=== PATIENT | male | born 1955 | race Caucasian/White ===

== ENCOUNTER 2024-11-06 12:38 | Emergency (ER) | payer OTHER ==
[~2024-11-06] VITALS: Ht 177.8 cm; Wt 84.4 kg
[2024-11-06 12:41] VITALS: BP 125/75; PULSE 88; RESP 16; O2SAT 97
--- NOTE | 2024-11-06 13:07 | RADIOLOGY REPORT ---
CLINICAL INDICATION: RIGHT HAND PAIN TECHNIQUE: Right DI HAND, COMPLETE (3VW MIN) Comparison: None FINDINGS/IMPRESSION: : There is no evidence of acute fracture or dislocation. Soft tissues are unremarkable. 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 Diffuse osteopenia.
[2024-11-06] MEDS: LIDOcaine 1% W/epiNEPHrine 1:100,000 20ml vial SQ STA (14:23)
[2024-11-06] MEDS: TETanus/Pertussis (Acell)/Diphther VAC/PF (Tdap-Adult) 0.5ml syringe IMVAC ONE (14:53)
[2024-11-06] MEDS ORDERED: SULF1TAB49 PO (16:51)
--- NOTE | 2024-11-06 16:51 | Physician Documentation ---
History of Present Illness ~ Chief Complaint: Laceration Stated Complaint: R WRIST/HAND LAC Time Seen by MD: 12:42 HPI Patient is seen today with complaints of laceration from a jagged piece of metal to the ulnar aspect of his right hand on the dorsum. Patient states this o ccurred just prior to arrival. Patient denies taking any blood thinners any has no other concern or complaint at this time. Tetanus Within 5 Years: Yes (November 06 2024) Medication Reconciliation Allergies: Coded Allergies: No Known Allergies (Unverified , 11/06/24) Past Medical History Smoking Status: Never smoker Review of Systems Constitutional: Denies: chills, fever, weakness Eyes: Denies: pain, blurred vision ENT: Denies: ear pain, nose pain, throat pain, mouth pain Respiratory: Denies: cough, shortness of breath Cardiovascular: Denies: chest pain, palpitations Gastrointestinal: Denies: abdominal pain, nausea, vomiting Genitourinary: Denies: burning, dysuria Male Genitalia: Denies: penile discharge, testicular pain Neurological: Denies: headache, dizziness Musculoskeletal: Denies: pain, swelling Integumentary: Denies: rash, lesions Allergic/Immunologic: Denies: hives, itching Hematologic/Lymphatic: Denies: no symptoms reported Psychiatric: Denies: depression, anxiety Physical Exam Vital Signs: Temperature: 98.0, Source: Temporal, Heart Rate: 88, Respiratory Rate: 16, BP: 125/75, Pulse Oximetry: 97, Weight: 84.400 Oxygen Flow Rate: 0 Physical Exam General: Awake and Alert, no acute distress. HEENT: Conjunctiva pink, Sclera clear, Mucus Membranes moist. Neck: Supple without masses and tenderness. Resp: Unlabored. Lungs clear to auscultation bilaterally. Heart: Regular Rate and rhythm, normal S1 and S2 without murmur, rub or gallop. Musculoskeletal: Patient on exam does have active wrist extension without any sign of ECU tendon involvement. Patient has full extension of all digits. Patient is neurovascularly intact distally of right upper extremity. Patient does have jagged and complicated 7 cm laceration that under scored a large flap of dermis to the dorsum of his right hand. Patient is neurovascularly intact distally. Motor function intact distally. Extremities: No cyanosis,clubbing or edema. Skin: Warm and Dry. Procedures Laceration/Wound Repair Laceration : Procedure Note Procedure note: 7 cc of 1% lidocaine with epinephrine was used to achieve local anesthesia of laceration to dorsum of right hand. Patient tolerated well. Area was copiously irrigated with normal saline and iodine. Patient tolerated well. Notable simple sutures as well as running stitch was used to achieve closure using 4-0 Ethilon of the 7 cm laceration to dorsum of right hand on the ulnar aspect. Skin tear was closed using Dermabond and Steri-Strips. Progress Results/Orders Results/Orders Completed Orders - DOROTHY WHITE Lidocaine 1% W/Epi 1:100,000 (Xylocaine (11/06/24 13:47) Tetanus/Pertuss/Diph Acell/Pf (Boostrix (11/06/24 14:50) Medications Received in ER Medications (Trade) Dose Ordered Sig/Shan Route PRN Reason Start Time Stop Time Status Last Admin Dose Admin (Boostrix vaccine syringe) 0.5 ml ONCE ONCE IMVAC 11/06/24 14:50 11/06/24 14:51 DC 11/06/24 14:53 0.5 ML Vital Signs 11/06/24 12:41 Temp 98.0 Pulse 88 Resp 16 B/P (MAP) 125/75 Pulse Ox 97 O2 Flow Rate 0 EKG/XRAY/CT/US/VASC/MRI Bone/Soft Tissue X-Ray (Ext.) : Additional Comment X-ray interpretation of right hand interpreted by myself today and shows no sign of acute fracture, significant DJD of 1st CMC joint, and chronic appearing amputation of distal tuft of the 3rd digit. DIAGNOSTIC RADIOLOGY Patient: DAVID FORRESTER V Medical Record: [id number] [facility] : 1955, Age: 68 Sex: Male Location: ER Patient Status: REG ER Service Date/Time: 11/06/241241 Ordering Physician: ЮЛИЯ KOVACS MD Exam: HAND, COMPLETE (3VW MIN) CLINICAL INDICATION: RIGHT HAND PAIN TECHNIQUE: Right DI HAND, COMPLETE (3VW MIN) Comparison: None FINDINGS/IMPRESSION: : There is no evidence of acute fracture or dislocation. Soft tissues are unremarkable. 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 Diffuse osteopenia. Electronically Signed by:BLAYNE LUNA MD Date & Time: 11/06/24 130 Dictated by: BLAYNE LUNA MD Dictation date and time: 11/06/24 1305 Primary Care Provider: NO PRIMARY CARE PROVIDER cc: ЮЛИЯ KOVACS MD ~ Medical Decision Making Findings Patient is seen today with complaints of laceration from a jagged piece of metal to the ulnar aspect of his right hand on the dorsum. Patient states this occu rred just prior to arrival. Patient denies taking any blood thinners any has no other concern or complaint at this time. Laceration to dorsum of right hand was sutured today by myself and patient tolerated well. Another skin flap or skin tear was repaired using Dermabond and Steri-Strips. Patient will follow up in 7-10 days for suture removal. Shared decision-making utilized today. Prescription of Bactrim DS sent to patient pharmacy to take prophylactically. Return to ED with any worsening, concerning or changing symptoms. Departure Disposition: 01 HOME / SELF CARE / HOMELESS Impression: Primary Impression: Laceration Condition: Improved Discharge Instructions: Laceration Care, Adult, [id number] Additional Instructions: Laceration to dorsum of right hand was sutured today by myself and patient tolerated well. Another skin flap or skin tear was repaired using Dermabond and Steri-Strips. Patient will follow up in 7-10 days for suture removal. Shared decision-making utilized today. Prescription of Bactrim DS sent to patient pharmacy to take prophylactically. Return to ED with any worsening, concerning or changing symptoms. Referrals: NO PRIMARY CARE PROVIDER (PCP) Prescriptions Sulfamethoxazole/Trimethoprim (Bactrim Ds Tablet) 800 Mg-160 Mg Tablet 1 TAB PO Q12H for 10 Days, #20 TAB Prov: DOROTHY WHITE 11/06/24 Signature Scribe Signature: No scribe Attestation: No scribe WHITE,DOROTHY R PAC Nov 06, 2024 16:50
[2024-11-06 17:19] VITALS: TEMP 98
== END 2024-11-06 17:21 | disposition home or self-care (01) ==
LOC: ER 12:39
DX: S61.411A Laceration without foreign body of right hand, initial encounter (principal); X58.XXXA Exposure to other specified factors, initial encounter; Y93.89 Activity, other specified; Y92.89 Other specified places as the place of occurrence of the external cause; Y99.8 Other external cause status
CPT/HCPCS: 12002; 73130; 90715; 99283; A6222; A6402; A6446; A6449; G0008; J7030; Z7610; 90471

== ENCOUNTER 2025-03-16 14:51 | Emergency (ER) | payer OTHER, MEDICAID ==
[~2025-03-16] VITALS: Ht 177.8 cm; Wt 80.0 kg
[2025-03-16 15:01] VITALS: TEMP 97.4
--- NOTE | 2025-03-16 15:05 | Physician Documentation ---
History of Present Illness Stated Complaint: PINK EYE HPI Patient is a very pleasant 69-year-old male that presents to the emergency department for evaluation of redness and irritation to the left eye that has now moved into the right eye although in a much milder form. Patient reports that he has had these symptoms for approximately 1 month. Patient denies any knowledge of chemical exposures to the eye anything blowing into his eye although patient does report that he spends a significant amount of time outside. Patient denies any other symptoms at this time. Reports that in the morning he has crusty discharge and has to pry his eyes open Medication Reconciliation Allergies: Coded Allergies: No Known Allergies (Unverified , 11/06/24) Scheduled Erythromycin Base Opth. Ointment* (Erythromycin Opth. Ointment*), 1 APPLIC EACHEYE Q4HWA Review of Systems All Other Systems at this time: Reviewed and Negative ROS As stated above in the HPI, otherwise all systems are reviewed and negative. Physical Exam Physical Exam General: Alert, no apparent distress. HEENT: PERRL, EOMI,, moist mucous membranes. eyes watery with injected sclera Neurologic: Oriented x4. Psychiatric: Normal mood and affect. Skin: Normal color, warm and dry. No edema, no ecchymosis. Medical Decision Making Additional info obtained from: other Findings Has all the clinical indications for bacterial conjunctivitis. I will treat him empirically based on my exam Differential Dx:Considerations: Include: AAA, Angina/AZ, Aortic dissection, Appendicitis, Bowel obstruction, Cholangitis, Cholelithasis, Constipation, Diverticular disease, Esophageal rupture, Esophagitis, Gastritis/PUD, Gastroenteritis, GI hemorrhage, Hernia, Hepatitis, Inflammatory BD, Ischemic bowel, Pancreatitis, Porphyria, Testicular torsion, Trauma, intraabdominal, Urinary obstruction, Urinary tract infection, Urolithiasis, Other Departure Disposition: 01 HOME / SELF CARE / HOMELESS Impression: Primary Impression: Bacterial conjunctivitis Discharge Instructions: Bacterial Conjunctivitis, Adult, [id number] Referrals: NO PRIMARY CARE PROVIDER (PCP) Prescriptions Erythromycin Base Opth. Ointment* (Erythromycin Opth. Ointment*) 1 Gm Tube 1 APPLIC EACHEYE Q4HWA, #1 EACH Prov: AVELINO DONAHUE RUBBER SPLICER 03/16/25 Signature Scribe Signature: d Attestation: Scribed for Avelino Donahue Clam Treader by Avelino Vargas NP . 03/16/25 15:48 TAYLER BAEZA SCRAP HOIST OPERATOR Mar 16, 2025 15:04 AVELINO DONAHUE NP Mar 16, 2025 15:47
[2025-03-16] MEDS ORDERED: ERYT1OIN6 EACHEYE (15:48)
[2025-03-16 16:17] VITALS: BP 117/79; PULSE 85; RESP 16; O2SAT 98
== END 2025-03-16 16:19 | disposition home or self-care (01) ==
LOC: ER 14:51
DX: H10.89 Other conjunctivitis (principal); Z88.1 Allergy status to other antibiotic agents
CPT/HCPCS: 99283